=== PATIENT | female | born 1980 | race Caucasian/White ===

== ENCOUNTER 2020-11-04 14:37 | Emergency (ER) | payer BC, OTHER ==
[~2020-11-04] VITALS: Ht 160 cm; Wt 125.0 kg
[2020-11-04 14:40] VITALS: BP 152/89
--- NOTE | 2020-11-04 14:58 | ED Upper Extremity ---
General Chief Complaint: Upper Extremity Stated Complaint: RT HAND INJ Source: patient History of Present Illness Date Seen by Provider: Nov 04, 2020 Time Seen by Provider: 14:38 Initial Comments 40-year-old female that is right-hand dominant presenting with right hand pain and swelling. She was getting in to her [place] when she was talking on the phone holding the phone with her left hand. She was holding the roof of the vehicle with her right hand when the door came shut on her hand. She is having pain and swelling to the hand especially behind her pinky finger. She denies any pain in her wrist. She feels like her fingers are going to sleep but she can move them and has sensation to light touch. She has not taken anything for pain. She has been trying to keep her hand elevated above her heart to help with pain and swelling. Onset: just prior to arrival Severity: severe Pain/Injury Location: right hand (Along the fifth metacarpal) Method of Injury: direct blow (Caught between the door and the door frame of her suburban vehicle) Modifying Factors: Worse With Movement Allergies and Home Medications Allergies Coded Allergies: No Known Drug Allergies (Unverified , 11/04/20) Home Medications Hydrocodone/Acetaminophen 1 Each Tablet, 1 TAB PO Q6H PRN for PAIN-SEVERE (8-10) Prescribed by: CAROLIN ZAZUETA on 11/04/20 1539 Ibuprofen 800 Mg Tablet, 800 MG PO Q8H PRN for PAIN Prescribed by: CAROLIN ZAZUETA on 11/04/20 1539 Patient Home Medication List Home Medication List Reviewed: Yes Review of Systems Constitutional: No chills, No fever EENTM: no symptoms reported Respiratory: no symptoms reported Cardiovascular: no symptoms reported Gastrointestinal: no symptoms reported Genitourinary: no symptoms reported Musculoskeletal: see HPI Skin: other (Bruising and swelling to the right hand over the fifth metacarpal area) Psychiatric/Neurological: Anxiety, Tingling (fingers of right hand) Past Frnsynx-Orctve-Ztumqq Hx Past Med/Social Hx: Reviewed Nursing Past Med/Soc Hx Patient Social History Alcohol Use: Denies Use Smoking Status: Never a Smoker 2nd Hand Smoke Exposure: No Recent Hopitalizations: No Seasonal Allergies Seasonal Allergies: Yes Past Medical History Surgeries: No Respiratory: No Cardiac: No Neurological: No Genitourinary: No Gastrointestinal: No Musculoskeletal: No Endocrine: No HEENT: No Cancer: No Psychosocial: No Integumentary: No Blood Disorders: No Physical Exam Vital Signs Vital Signs - First Documented 11/04/20 14:40 Temp 36.5 Pulse 82 Resp 22 B/P (MAP) 152/89 (110) O2 Delivery Room Air Capillary Refill : Height, Weight, BMI Height: '" Weight: lbs. oz. kg; BMI Method: General Appearance: WD/WN, moderate distress, obese Cardiovascular: normal peripheral pulses Elbow/Forearm: normal inspection, non-tender, no evidence of injury, normal ROM Wrist: Yes normal inspection, Yes non-tender, Yes no evidence of injury Hand: Right, ecchymosis, soft tissue tenderness, swelling Neurologic/Tendon: normal sensation (sensation intact to light touch), normal motor functions Neurologic/Psychiatric: alert, oriented x 3 Skin: warm/dry, ecchymosis (with swelling and some redness to right hand along 5th metacarpal) Procedures/Interventions Splinting and Joint Reduction : Location: right hand Pre-Proc Neuro Vasc Exam: normal Post-Proc Neuro Vasc Exam: normal Progress Velcro splint on right hand to help with compression and pain. Progress/Results/Core Measures Results/Orders My Orders Orders - CAROLIN ZAZUETA MD Ice: Apply To Affected Area (11/04/20 14:48) Elevate Affected Extremity (11/04/20 14:48) Hand 3 View Right (11/04/20 14:48) Ketorolac Injection (Toradol Injection) (11/04/20 15:35) Orthopedic Equiment (11/04/20 15:35) Ed Ortho/Other Supplies Order (11/04/20 15:35) Juvencio Bandage (11/04/20 15:35) Vital Signs/I&O 11/04/20 14:40 Temp 36.5 Pulse 82 Resp 22 B/P (MAP) 152/89 (110) O2 Delivery Room Air Progress Progress Note #1: Progress Note Obtain x-rays of the right hand, ice and elevation for pain. Progress Note #2: Time: 15:17 Progress Note No acute fracture seen on imaging. Treat symptomatically with splint, ice, rest, elevation, compression. Check with Dr. Hartman or Orthopedics if not improving or having more problems in next 5-10days. Diagnostic Imaging Diagonstic Imaging: Xray Plain Films/CT/US/NM/MRI: other (Right hand) Comments NAME: [facility]BIE [facility] REC#: [id number] PT STATUS: REG ER : 1980 PHYSICIAN: CAROLIN ZAZUETA MD ADMIT DATE: 11/04/20/ER FS Draft Date of Exam:11/04/20 HAND 3 VIEW RIGHT INDICATION: Injury to the right hand. TIME OF EXAM: 2:49 PM. FINDINGS: Three views of the right hand were obtained. The metacarpals are intact. The phalanges appear intact. No fractures are seen. The carpus is unremarkable. IMPRESSION: No acute bony abnormality is detected. Dictated on workstation # [id number] Dict: 11/04/20 1507 Trans: 11/04/20 1512 [id number] Interpreted by: ROMAN GROVER MD Electronically signed by: Departure Impression Primary Impression: Contusion of right hand, initial encounter Additional Impressions: Traumatic hematoma of right hand Qualified Codes: S60.221A - Contusion of right hand, initial encounter Crushing injury of right hand, initial encounter Disposition: HOME, SELF-CARE Condition: Stable Departure-Patient Inst. Decision time for Depature: 15:39 Referrals: LANCE HARTMAN MD (PCP/Family) Primary Care Physician RODRI GORMAN MD Patient Instructions: Crush Injury (DC), Hand Pain (DC), Contusion (DC) Add. Discharge Instructions: Ice 20-30 minutes every few hours as needed for pain and swelling. Try to keep your hand elevated above heart level to help with pain and swelling. Compression with juvencio bandage and the aluminum foam splint for support to help your hand rest and heal from the contusion and injury. If not improving over the next 5-10 days then check with Dr. Hartman or you could call Orthopedics for follow up Dr. Gorman and his nurse practitioner Colton Miranda could be seen by calling [phone] All discharge instructions reviewed with patient and/or family. Voiced understanding. Scripts Hydrocodone/Acetaminophen (Hydrocodone-Acetamin 5-325 mg) 1 Each Tablet 1 TAB PO Q6H PRN for PAIN-SEVERE (8-10) for 3 Days, #12 TAB 0 Refills Prov: CAROLIN ZAZUETA MD 11/04/20 Ibuprofen (Ibuprofen) 800 Mg Tablet 800 MG PO Q8H PRN for PAIN for 10 Days, #30 TAB 0 Refills Prov: CAROLIN ZAZUETA MD 11/04/20 Images Extremities-Upper 1 - Moderate, Contusion, Ecchymosis, Swelling, Tenderness (Moderate amount of swelling with ecchymosis and tenderness to right hand along 5th metacarpal ma inly. ) CAROLIN ZAZUETA MD Nov 04, 2020 14:58
--- NOTE | 2020-11-04 15:12 | Diagnostic Imaging Report ---
INDICATION: Injury to the right hand. TIME OF EXAM: 2:49 PM. FINDINGS: Three views of the right hand were obtained. The metacarpals are intact. The phalanges appear intact. No fractures are seen. The carpus is unremarkable. IMPRESSION: No acute bony abnormality is detected. Dictated by: Dictated on workstation # [id number]
[2020-11-04] MEDS ORDERED: KETOROLAC 60 MG/2 ML VIAL IM STA (15:35)
[2020-11-04] MEDS ORDERED: ACHD5005 PO (15:39)
[2020-11-04] MEDS ORDERED: IBUP-1780 PO (15:39)
== END 2020-11-04 15:41 | disposition home or self-care (01) ==
LOC: ER FS 14:39
DX: S67.21XA Crushing injury of right hand, initial encounter (principal); S60.221A Contusion of right hand, initial encounter; W23.0XXA Caught, crushed, jammed, or pinched between moving objects, initial encounter
CPT/HCPCS: 73130

== ENCOUNTER → 2020-11-27 | Outpatient (CLI) | payer BC ==
[~2020-11-27] MED LIST: ACHD5005 PO; IBUP-1780 PO
== END ==
LOC: LABNPT 14:57
PROVIDERS: ATTEND Family Medicine
DX: Z01.419 Encounter for gynecological examination (general) (routine) without abnormal findings (principal)
CPT/HCPCS: 87210